=== PATIENT | male | born 1995 ===

== ENCOUNTER 2017-05-29 17:29 | Emergency (ER) | payer SELFPAY ==
[2017-05-29 17:29] VITALS: BMI 24.4
[2017-05-29 18:23] VITALS: BP 155/58; PULSE 75; RESP 16; TEMP 98.6; O2SAT 100
--- NOTE | 2017-05-29 19:12 | ED PDOC ---
HPI: General Adult Time Seen by Provider: 05/29/17 18:35 Chief Complaint (Nursing): Flu-like Symptoms Chief Complaint (Provider): Flu-like Symptoms History Per: Patient History/Exam Limitations: no limitations Onset/Duration Of Symptoms: Days (x2) Have you had recent travel within the past 21 days to any of the following countries: [place], [place], [place] or [place]?: No Current Symptoms Are (Timing): Still Present Additional Complaint(s): 22 year old male who presents to the emergency department with a complaint of flu-like symptoms including sore throat, weakness, bodyache, cough, headache and tactile fever ongoing since last night. Denied any shortness of breath, chest pain or recent travel. PMD: none provided Past Medical History Reviewed: Historical Data, Nursing Documentation, Vital Signs Vital Signs: Last Vital Signs Temp 98.6 F 05/29/17 18:21 Pulse 75 05/29/17 18:21 Resp 16 05/29/17 18:21 BP 155/58 H 05/29/17 18:21 Pulse Ox 100 05/29/17 19:18 - Medical History PMH: No Chronic Diseases Denies: Diabetes, Hepatitis, HIV, HTN, Seizures, Sexually Transmitted Disease - Surgical History Surgical History: No Surg Hx - Family History Family History: States: Unknown Family Hx - Social History Current smoker - smoking cessation education provided: No Alcohol: None Drugs: Denies - Home Medications Home Medications: Ambulatory Orders Medication Instructions Recorded Guaifenesin 400 mg PO QID #20 tablet 05/29/17 Ibuprofen [Motrin Tab] 600 mg PO QID PRN #20 tab 05/29/17 Oseltamivir Phosphate [Tamiflu] 75 mg PO BID #10 capsule 05/29/17 - Allergies Allergies/Adverse Reactions: Allergies Allergy/AdvReac Type Severity Reaction Status Date / Time No Known Allergies Allergy Verified 05/29/17 18:20 Review of Systems ROS Statement: Except As Marked, All Systems Reviewed And Found Negative Constitutional: Positive for: Fever (tactile), Weakness, Other (bodyache) ENT: Positive for: Nose Congestion, Throat Pain Cardiovascular: Negative for: Chest Pain Respiratory: Positive for: Cough. Negative for: Shortness of Breath Neurological: Positive for: Headache Physical Exam - Reviewed Nursing Documentation Reviewed: Yes Vital Signs Reviewed: Yes - Physical Exam Appears: Positive for: Well, Non-toxic, No Acute Distress Skin: Positive for: Normal Color, Warm, Dry. Negative for: Rash ENT: Positive for: Normal ENT Inspection, Pharynx Is (within normal limits), TM Is/Are (wnl, no erythema). Negative for: Pharyngeal Erythema, Tonsillar Exudate Neck: Positive for: Normal, Supple (no signs of meningismus) Cardiovascular/Chest: Positive for: Regular Rate, Rhythm, Chest Non Tender Respiratory: Positive for: Normal Breath Sounds. Negative for: Decreased Breath Sounds, Rales, Rhonchi, Wheezing, Respiratory Distress Gastrointestinal/Abdominal: Positive for: Normal Exam, Soft. Negative for: Tenderness Extremity: Positive for: Normal ROM (upper/lower). 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 Advised to take medication as prescribed. Return to the emergency room at any time for any new or worsening symptoms. Patient states he fully agrees with and understands discharge instructions. States that he agrees with the plan and disposition. Verbalized and repeated discharge instructions and plan. I have given the patient opportunity to ask any additional questions. Scribe Attestation: Documented by Ayanna Denise, acting as a scribe for Franny Mchugh PA-C. Provider Scribe Attestation: All medical record entries made by the Scribe were at my direction and personally dictated by me. I have reviewed the chart and agree that the record accurately reflects my personal performance of the history, physical exam, medical decision making, and the department course for this patient. I have also personally directed, reviewed, and agree with the discharge instructions and disposition. Disposition - Clinical Impression Clinical Impression: Influenza-like symptoms - Patient ED Disposition Is Patient to be Admitted: No Counseled Patient/Family Regarding: Diagnosis, Need For Followup, Rx Given - Disposition Referrals: Ray Monterroso MD [Staff Provider] - [facility] [Outside] Disposition: Routine/Home Disposition Time: 19:10 Condition: STABLE Additional Instructions: Thank you for letting us take care of you today. You were treated for viral illness, consider influenza. The emergency medical care you received today was directed at your acute symptoms. If you were prescribed any medication, please fill it and take as directed. It may take several days for your symptoms to resolve. Return to the Emergency Department if your symptoms worsen, do not improve, or if you have any other problems. Please call one of the physicians/clinics you have been referred to that are listed on the Patient Visit Information form that is included in your discharge packet. Bring any paperwork you were given at discharge with you along with any medications you are taking to your follow up visit. Our treatment cannot replace ongoing medical care by a primary care provider (PCP) outside of the emergency department. Thank you for allowing the [facility] team to be part of your care today. 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
== END 2017-05-29 19:35 | disposition home or self-care (01) ==
LOC: H.ER 17:29
DX: B34.9 Viral infection, unspecified (principal)

== ENCOUNTER 2017-07-01 16:15 | Emergency (ER) | payer OTHER ==
[2017-07-01 16:15] VITALS: BMI 24.4
[2017-07-01 16:22] VITALS: TEMP 98.1
[2017-07-01] MEDS ORDERED: Sodium Chloride 0.9% 1,000 ML IV STA (16:53)
--- NOTE | 2017-07-01 16:56 | ED PDOC ---
HPI: Abdomen Time Seen by Provider: 07/01/17 16:28 Chief Complaint (Nursing): Abdominal Pain Chief Complaint (Provider): Diarrhea History Per: Patient History/Exam Limitations: no limitations Onset/Duration Of Symptoms: Hrs Additional Complaint(s): Jose L Chen is a 22 year old male that presents to the ED with a chief complaint of nonbloody diarrhea that began earlier today s/p eating pasta. Patient denies any fever, nausea, vomiting, or genitourinary symptoms, but reports associated abdominal cramping. Past Medical History Reviewed: Historical Data, Nursing Documentation, Vital Signs Vital Signs: Last Vital Signs Temp 98.1 F 07/01/17 18:47 Pulse 86 07/01/17 18:47 Resp 18 07/01/17 18:47 BP 149/82 07/01/17 18:47 Pulse Ox 99 07/01/17 18:47 - Medical History PMH: No Chronic Diseases Denies: Diabetes, Hepatitis, HIV, HTN, Seizures, Sexually Transmitted Disease - Surgical History Other surgeries: non-contributory surgical history - Family History Family History: States: Unknown Family Hx - Home Medications Home Medications: Ambulatory Orders Medication Instructions Recorded Guaifenesin 400 mg PO QID #20 tablet 05/29/17 Ibuprofen [Motrin Tab] 600 mg PO QID PRN #20 tab 05/29/17 Oseltamivir Phosphate [Tamiflu] 75 mg PO BID #10 capsule 05/29/17 Loperamide [Loperamide HCl] 2 mg PO DAILY PRN #10 cap 07/01/17 - Allergies Allergies/Adverse Reactions: Allergies Allergy/AdvReac Type Severity Reaction Status Date / Time No Known Allergies Allergy Verified 05/29/17 18:20 Review of Systems ROS Statement: Except As Marked, All Systems Reviewed And Found Negative Constitutional: Negative for: Fever Gastrointestinal: Positive for: Abdominal Pain (mild abdominal cramping), Diarrhea (nonbloody diarrhea). Negative for: Nausea, Vomiting Genitourinary Male: Negative for: Dysuria, Frequency, Incontinence, Hematuria Physical Exam - Reviewed Nursing Documentation Reviewed: Yes Vital Signs Reviewed: Yes - Physical Exam Appears: Positive for: Non-toxic, No Acute Distress Head Exam: Positive for: ATRAUMATIC, NORMOCEPHALIC Skin: Positive for: Normal Color, Warm Eye Exam: Positive for: EOMI, Normal appearance, PERRL Cardiovascular/Chest: Positive for: Regular Rate, Rhythm. Negative for: Murmur Respiratory: Positive for: Normal Breath Sounds. Negative for: Wheezing Gastrointestinal/Abdominal: Positive for: Normal Exam, Soft. Negative for: Tenderness Back: Positive for: Normal Inspection. Negative for: L CVA Tenderness, R CVA Tenderness Extremity: Positive for: Normal ROM. Negative for: Deformity, Swelling Neurologic/Psych: Positive for: Alert, Oriented. Negative for: Motor/Sensory Deficits - Laboratory Results Result Diagrams: 07/01/17 17:00 07/01/17 17:00 - ECG O2 Sat by Pulse Oximetry: 98 (RA) Pulse Ox Interpretation: Normal Medical Decision Making Medical Decision Making: Impression: Gastroenteritis, Diarrhea Plan: * CMP * CBC * NaCl 1000 mLs at 1000 mLs/hr * Reevaluation Pt feels better, requesting food. Ate sandwich without difficulty. Scribe Attestation: Documented by Randee Veloz, acting as a scribe for Nieves Agarwal MD. Provider Scribe Attestation: All medical record entries made by the Scribe were at my direction and personally dictated by me. I have reviewed the chart and agree that the record accurately reflects my personal performance of the history, physical exam, medical decision making, and the department course for this patient. I have also personally directed, reviewed, and agree with the discharge instructions and disposition. Disposition - Clinical Impression Clinical Impression: Diarrhea - Disposition Referrals: [facility] [Outside] Disposition: Routine/Home Disposition Time: 18:32 Condition: IMPROVED Prescriptions: Loperamide [Loperamide HCl] 2 mg PO DAILY PRN #10 cap PRN Reason: Diarrhea Instructions: Diarrhea in Adolescents and Adults Forms: [employer] (Spanish), [facility] ED School/Work Excuse
[2017-07-01 17:20] LABS: BASO # 0.1 K/uL (0.0-0.2); EOS # 0.1 K/uL (0.0-0.7); EOS % 2.2 % (0.0-4.0); HEMOGLOBIN 14.5 g/dL (12.0-18.0); LYMPH # 1.7 K/uL (1.0-4.3); LYMPH % 26.7 % (20.0-40.0); MEAN CELL VOLUME 87.1 fl (80.0-94.0); MEAN CORPUSCULAR HEMOGLOBIN 28.9 pg (27.0-31.0); MEAN CORPUSCULAR HGB CONC 33.2 g/dL (33.0-37.0); MEAN PLATELET VOLUME 7.4 fl (7.2-11.7); MONO # 0.9 K/uL (0.0-0.8); MONO % 14.3 % (0.0-10.0); NEUT # 3.5 K/uL (1.8-7.0); NEUT % 55.8 % (50.0-75.0); NRBC % 0.1 % (0.0-0.0); RED CELL DISTRIBUTION WIDTH 13.2 % (11.5-14.5); WHITE BLOOD COUNT 6.3 K/uL (4.8-10.8)
[2017-07-01 17:44] LABS: ALB/GLOB RATIO 1.2 (1.0-2.1); ALBUMIN 4.5 g/dL (3.5-5.0); ALT/SGPT 45 U/L (21-72); AST/SGOT 33 U/L (17-59); BLOOD UREA NITROGEN 11 mg/dl (9-20); CALCIUM 9.8 mg/dL (8.4-10.2); GFR AFRICAN-AMERICAN > 60; GFR NON-AFRICAN AMERICAN > 60
[2017-07-01 18:47] VITALS: BP 149/82; PULSE 86; RESP 18
[2017-07-02 09:36] VITALS: O2SAT 98
== END 2017-07-01 18:51 | disposition home or self-care (01) ==
LOC: H.ER 16:15 → SUPCPDRO 16:15 → H.ER 18:51
DX: K52.9 Noninfective gastroenteritis and colitis, unspecified (principal)
CPT/HCPCS: 80053; 85025; 96360; 99283; J7040

== ENCOUNTER 2017-08-20 15:22 | Emergency (ER) | payer OTHER ==
[2017-08-20 15:22] VITALS: BMI 24.4
[2017-08-20 15:29] VITALS: PULSE 96; RESP 18; TEMP 97.3; O2SAT 98
--- NOTE | 2017-08-20 16:02 | ED PDOC ---
HPI: CCC, URI, Sore Throat Time Seen by Provider: 08/20/17 15:29 Chief Complaint (Nursing): ENT Problem Chief Complaint (Provider): ENT Problem History Per: Patient History/Exam Limitations: no limitations Onset/Duration Of Symptoms: Days (x2 days) Current Symptoms Are (Timing): Still Present Additional Complaint(s): Patient is complaining of sore throat, dry cough, tactile fever and headache x 2days. Otherwise:(-) URI symptoms, (-) SOB, (-) chest pain, (-) N/V/D, (-) abdominal pain, (-) flank pain, (-) urinary symptoms, (-) recent travel, (-) sick contacts. Past Medical History Reviewed: Historical Data, Nursing Documentation, Vital Signs Vital Signs: Last Vital Signs Temp 97.3 F L 08/20/17 15:27 Pulse 96 H 08/20/17 15:27 Resp 18 08/20/17 15:27 BP 152/95 H 08/20/17 17:31 Pulse Ox 98 08/20/17 17:15 - Medical History PMH: Denies: Diabetes, Hepatitis, HIV, HTN, Seizures, Sexually Transmitted Disease - Surgical History Surgical History: No Surg Hx - Family History Family History: States: Unknown Family Hx - Social History Current smoker - smoking cessation education provided: No Alcohol: None Drugs: Denies - Home Medications Home Medications: Ambulatory Orders Medication Instructions Recorded Guaifenesin 400 mg PO QID #20 tablet 05/29/17 Ibuprofen [Motrin Tab] 600 mg PO QID PRN #20 tab 05/29/17 Oseltamivir Phosphate [Tamiflu] 75 mg PO BID #10 capsule 05/29/17 Loperamide [Loperamide HCl] 2 mg PO DAILY PRN #10 cap 07/01/17 Ibuprofen [Motrin Tab] 600 mg PO QID PRN #20 tab 08/20/17 - Allergies Allergies/Adverse Reactions: Allergies Allergy/AdvReac Type Severity Reaction Status Date / Time No Known Allergies Allergy Verified 08/20/17 15:27 Review of Systems ROS Statement: Except As Marked, All Systems Reviewed And Found Negative (As per HPI, otherwise negative) Constitutional: Positive for: Fever ENT: Positive for: Throat Pain (Sore thraot) Respiratory: Positive for: Cough (dry) Neurological: Positive for: Headache Physical Exam - Reviewed Nursing Documentation Reviewed: Yes Vital Signs Reviewed: Yes - Physical Exam Comments: GENERAL APPEARANCE: Patient is awake, alert, oriented x 3, in no acute distress. SKIN: Warm, dry; (-) cyanosis, (-) rash. EYES: (-) conjunctival pallor, (-) scleral icterus, (-) conjunctival hemorrhage. ENMT: Mucous membranes moist. TMs: (-) erythema. Airway patent: (-) stridor. Pharynx: (-) erythema, (-) exudate. NECK: (-) tenderness, (-) stiffness, (-) meningismus, (-) lymphadenopathy. CHEST AND RESPIRATORY: (-) accessory muscle use. Lungs: (-) rales, (-) rhonchi , (-) wheezes, (-) rub; breath sounds equal bilaterally. HEART AND CARDIOVASCULAR: (-) irregularity; (-) murmur, (-) gallop, (-) rub. ABDOMEN AND GI: Soft; (-) tenderness, (-) guarding; (-) organomegaly; (-) mass; (-) CVA tenderness. EXTREMITIES: (-) deformity; (-) cellulitis, (-) lymphangitis; (-) edema. NEURO AND PSYCH: Mental status as above; (-) focal findings. - ECG O2 Sat by Pulse Oximetry: 98 (RA) Pulse Ox Interpretation: Normal Medical Decision Making Medical Decision Making: Time: 15:46 Initial Impression: viral illness Plan: Influenza A B Rapis Strep Group Time: 16:00 --Influenza A B - negative --Rapid strep group - negative - Advised to follow up with the clinic in 1-2 days without fail. Advised to take medication as prescribed. Return to the emergency room at any time for any new or worsening symptoms. Patient states he fully agrees with and understands discharge instructions. States that he agrees with the plan and disposition. Verbalized and repeated discharge instructions and plan. I have given the patient opportunity to ask any additional questions. Scribe Attestation: Documented by Mary Kay Frank acting as a scribe for REENA Viramontes PA-C. MD Tello Attestation: All medical record entries made by the Scribe were at my direction and personally dictated by me. I have reviewed the chart and agree that the record accurately reflects my personal performance of the history, physical exam, medical decision making, and the department course for this patient. I have also personally directed, reviewed, and agree with the discharge instructions and disposition. Disposition - Clinical Impression Clinical Impression: Viral illness - Patient ED Disposition Is Patient to be Admitted: No Counseled Patient/Family Regarding: Studies Performed, Diagnosis, Need For Followup, Rx Given - Disposition Referrals: [facility] [Outside] Disposition: Routine/Home Disposition Time: 17:00 Condition: FAIR Additional Instructions: Thank you for letting us take care of you today. You were treated for viral illness. The emergency medical care you received today was directed at your acute symptoms. If you were prescribed any medication, please fill it and take as directed. It may take several days for your symptoms to resolve. Return to the Emergency Department if your symptoms worsen, do not improve, or if you have any other problems. Please call one of the physicians/clinics you have been referred to that are listed on the Patient Visit Information form that is included in your discharge packet. Bring any paperwork you were given at discharge with you along with any medications you are taking to your follow up visit. Our treatment cannot replace ongoing medical care by a primary care provider (PCP) outside of the emergency department. Thank you for allowing the [facility] team to be part of your care today. 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
[2017-08-20 17:31] VITALS: BP 152/95
== END 2017-08-20 17:25 | disposition home or self-care (01) ==
LOC: H.ER 15:22
DX: R05 Cough (principal); B34.9 Viral infection, unspecified

== ENCOUNTER 2018-01-05 17:58 | Emergency (ER) | payer SELFPAY ==
[2018-01-05 17:58] VITALS: BMI 24.4
[2018-01-05 18:18] VITALS: BP 120/63; PULSE 84; RESP 18; TEMP 98; O2SAT 99
--- NOTE | 2018-01-05 19:01 | ED PDOC ---
Lower Extremity Pain/Injury Time Seen by Provider: 01/05/18 18:40 Chief Complaint (Nursing): Lower Extremity Problem/Injury Chief Complaint (Provider): Ankle pain History Per: Patient History/Exam Limitations: no limitations Onset/Duration Of Symptoms: Days (x2) Additional Complaint(s): Jose L Chen, a 22 year old male with no significant past medical history, presents to the emergency department with ankle pain onset yesterday. Patient states he slipped and fell going up the stairs and twisted his ankle and reports more pain today. No further medical complaints. Past Medical History Reviewed: Historical Data, Nursing Documentation, Vital Signs Vital Signs: Last Vital Signs Temp 98.0 F 01/05/18 18:16 Pulse 84 01/05/18 18:16 Resp 18 01/05/18 18:16 BP 120/63 01/05/18 18:16 Pulse Ox 99 01/05/18 18:16 - Medical History PMH: Denies: Diabetes, Hepatitis, HIV, HTN, Seizures, Sexually Transmitted Disease - Family History Family History: States: Unknown Family Hx - Home Medications Home Medications: Ambulatory Orders Medication Instructions Recorded Guaifenesin 400 mg PO QID #20 tablet 05/29/17 Ibuprofen [Motrin Tab] 600 mg PO QID PRN #20 tab 05/29/17 Oseltamivir Phosphate [Tamiflu] 75 mg PO BID #10 capsule 05/29/17 Loperamide [Loperamide HCl] 2 mg PO DAILY PRN #10 cap 07/01/17 Ibuprofen [Motrin Tab] 600 mg PO QID PRN #20 tab 08/20/17 Ibuprofen [Motrin] 400 mg PO Q8 PRN #21 tab 01/05/18 - Allergies Allergies/Adverse Reactions: Allergies Allergy/AdvReac Type Severity Reaction Status Date / Time No Known Allergies Allergy Verified 01/05/18 18:16 Review of Systems ROS Statement: Except As Marked, All Systems Reviewed And Found Negative Musculoskeletal: Positive for: Other (ankle pain) Physical Exam - Reviewed Nursing Documentation Reviewed: Yes Vital Signs Reviewed: Yes - Physical Exam Appears: Positive for: Well, Non-toxic, No Acute Distress Head Exam: Positive for: ATRAUMATIC, NORMAL INSPECTION, NORMOCEPHALIC Cardiovascular/Chest: Positive for: Regular Rate, Rhythm Respiratory: Positive for: Normal Breath Sounds. Negative for: Respiratory Distress Extremity: Positive for: Tenderness (distal right lateral malleolus, right lateral foot (mild)), Swelling. Negative for: Other (ecchymosis) Neurologic/Psych: Positive for: Alert, Oriented - ECG O2 Sat by Pulse Oximetry: 99 (RA) Pulse Ox Interpretation: Normal - Progress ED Course And Treament: xry of ankle: neg for fx xry of foot: neg for fx motrin 400mg x 1 dose Placed in air cast Medical Decision Making Medical Decision Making: Time: 18:40 Initial Impression: ankle pain following a fall Initial Plan: --Motrin 400 mg PO --Xray right ankle 3 views --Xray right foot 3 views Scribe Attestation: Documented by Valentina Weiss, acting as a scribe for Cherelle Frank PA-C. Provider Scribe Attestation: All medical record entries made by the Scribe were at my direction and personally dictated by me. I have reviewed the chart and agree that the record accurately reflects my personal performance of the history, physical exam, medical decision making, and the department course for this patient. I have also personally directed, reviewed, and agree with the discharge instructions and disposition. Disposition - Clinical Impression Clinical Impression: Ankle sprain and strain - Patient ED Disposition Is Patient to be Admitted: No - Disposition Referrals: [facility] [Outside] Disposition: Routine/Home Disposition Time: 19:30 Condition: FAIR Prescriptions: Ibuprofen [Motrin] 400 mg PO Q8 PRN #21 tab PRN Reason: Pain, Moderate (4-7) Instructions: Ankle Sprain (DC) Forms: [facility] ED School/Work Excuse
--- NOTE | 2018-01-06 09:03 | RAD ---
Date of service: 01/05/2018 PROCEDURE: Right Wrist Radiographs. HISTORY: ankle injury COMPARISON: None. FINDINGS: BONES: Old distal fibular fracture. JOINTS: Normal. No dislocation. SOFT TISSUES: Normal. OTHER FINDINGS: None. IMPRESSION: Old distal fibular fracture.
--- NOTE | 2018-01-06 09:10 | RAD ---
Date of service: 01/05/2018 PROCEDURE: Right Foot Radiographs. HISTORY: foot injury COMPARISON: None. FINDINGS: BONES: Normal. No fracture. JOINTS: Normal. SOFT TISSUES: Normal. OTHER FINDINGS: None. IMPRESSION: Normal right foot radiographs.
== END 2018-01-05 20:10 | disposition home or self-care (01) ==
LOC: H.ER 17:58
DX: S93.401A Sprain of unspecified ligament of right ankle, initial encounter (principal); X50.9XXA Other and unspecified overexertion or strenuous movements or postures, initial encounter; Y92.89 Other specified places as the place of occurrence of the external cause

== ENCOUNTER 2018-01-19 03:18 | Emergency (ER) | payer SELFPAY ==
[2018-01-19 03:18] VITALS: BMI 24.4
[2018-01-19 03:45] VITALS: PULSE 73; RESP 18; TEMP 99.4
--- NOTE | 2018-01-19 04:13 | ED PDOC ---
HPI: Psych/Substance Abuse Time Seen by Provider: 01/19/18 03:53 Chief Complaint (Nursing): Trauma ED Caveat: Intoxicated History Per: Patient, Other History/Exam Limitations: intoxication Onset/Duration Of Symptoms: Mins Modifying Factor(s): Alcohol Additional Complaint(s): No PMHx presenting with fall from 5 feet, admits to drinking alcohol, patietn states he didn't lose consciousness but friend states he might have. Also states that he hurt his R wrist bracing himself. Past Medical History Reviewed: Historical Data, Nursing Documentation, Vital Signs Vital Signs: Last Vital Signs Temp 99.4 F 01/19/18 03:42 Pulse 73 01/19/18 03:42 Resp 18 01/19/18 03:42 BP 133/44 L 01/19/18 03:42 Pulse Ox 97 01/19/18 03:42 - Medical History PMH: Denies: Diabetes, Hepatitis, HIV, HTN, Seizures, Sexually Transmitted Disease - Family History Family History: States: Unknown Family Hx - Home Medications Home Medications: Ambulatory Orders Medication Instructions Recorded Guaifenesin 400 mg PO QID #20 tablet 05/29/17 Ibuprofen [Motrin Tab] 600 mg PO QID PRN #20 tab 05/29/17 Oseltamivir Phosphate [Tamiflu] 75 mg PO BID #10 capsule 05/29/17 Loperamide [Loperamide HCl] 2 mg PO DAILY PRN #10 cap 07/01/17 Ibuprofen [Motrin Tab] 600 mg PO QID PRN #20 tab 08/20/17 Ibuprofen [Motrin] 400 mg PO Q8 PRN #21 tab 01/05/18 Ibuprofen [Motrin Tab] 600 mg PO Q6 #30 tab 01/19/18 - Allergies Allergies/Adverse Reactions: Allergies Allergy/AdvReac Type Severity Reaction Status Date / Time No Known Allergies Allergy Verified 01/05/18 18:16 Review of Systems Review Of Systems: ROS cannot be obtained secondary to pt's inabilty to answer questions. Physical Exam - Reviewed Nursing Documentation Reviewed: Yes Vital Signs Reviewed: Yes - Physical Exam Appears: Positive for: Well (Intoxicated appearing), Non-toxic, No Acute Distress Head Exam: Positive for: ATRAUMATIC, NORMAL INSPECTION, NORMOCEPHALIC Skin: Positive for: Normal Color, Warm, DRY Eye Exam: Positive for: EOMI, Normal appearance, PERRL ENT: Positive for: Normal ENT Inspection Neck: Positive for: Normal, Painless ROM Cardiovascular/Chest: Positive for: Regular Rate, Rhythm Respiratory: Positive for: CNT, Normal Breath Sounds Gastrointestinal/Abdominal: Positive for: Normal Exam, Soft Back: Positive for: Normal Inspection Extremity: Positive for: Tenderness (R wrist with swelling, nontender snuffbox, swelling to distal radius, no stepoff, neurovascularly intact), Capillary Refill (2+) Neurologic/Psych: Positive for: Alert, sign builder II-XII, Oriented, Gait (normal). Negative for: Motor/Sensory Deficits - ECG O2 Sat by Pulse Oximetry: 97 Pulse Ox Interpretation: Normal Medical Decision Making Medical Decision MakinAM Intox with head trauma and wrist trauma --Stable appearing --Will get CT, xrays, re-eval Time: 0658 CT HEAD RESULTS FINDINGS: Brain: Normal. No hemorrhage. No significant white matter disease. No edema. Ventricles: Normal. No ventriculomegaly. Bones/joints: Normal. No acute fracture. Sinuses: Mild patchy sinus disease. There is opacification of left sphenoid sinus. Mastoid air cells: Normal as visualized. No mastoid effusion. Orbits: The visualized portions of globe and lens are intact. Soft tissues: Right frontal scalp hematoma. 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 IMPRESSION: 1. Right frontal scalp hematoma. 2. No evidence of an acute intracranial hemorrhage, midline shift or mass effect is identified. Thank you for allowing us to participate in the care of your patient. Dictated and Authenticated by: Taylor Wolf MD 01/19/2018 6:58 AM Eastern Time ([place] & [place]) Time: 0703 CT CERVICAL SPINE RESULTS FINDINGS: Vertebrae: Reversal of the normal cervical lordosis may be positional versus muscular spasm. 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 Discs/Spinal canal/Neural foramina: No spinal stenosis. No neural foraminal narrowing. Soft tissues: Posterior neck subcutaneous soft tissue nodules likely representing benign etiology. Lung apices: Normal. There is opacification of the left sphenoid sinus. Patchy sinus disease. Right tonsilloliths. IMPRESSION: There is no acute fracture of cervical spine. Thank you for allowing us to participate in the care of your patient. Dictated and Authenticated by: Taylor Wolf MD 01/19/2018 7:03 AM Eastern Time ([place] & [place]) 0705 Patient placed in wrist splint for protection of wrist. PAtient feeling well, sober, alert, A&O x 3. Patient will followup in clinic. Disposition - Clinical Impression Clinical Impression: Wrist sprain, Head injury - Patient ED Disposition Is Patient to be Admitted: No - Disposition Referrals: [facility] [Outside] Disposition: Routine/Home Disposition Time: 07:09 Condition: IMPROVED Prescriptions: Ibuprofen [Motrin Tab] 600 mg PO Q6 #30 tab Instructions: Closed Head Injury, Common Wrist Injuries Forms: [facility] (Macedonian), [facility] ED School/Work Excuse
[2018-01-19 07:29] VITALS: BP 128/80; O2SAT 99
--- NOTE | 2018-01-19 08:38 | CT ---
Date of service: 01/19/2018 PROCEDURE: CT HEAD WITHOUT CONTRAST. HISTORY: intox, head injury COMPARISON: 2010 TECHNIQUE: Axial computed tomography images were obtained through the head/brain without intravenous contrast. Radiation dose: Total exam DLP = 918 mGy-cm. This CT exam was performed using one or more of the following dose reduction techniques: Automated exposure control, adjustment of the mA and/or kV according to patient size, and/or use of iterative reconstruction technique. FINDINGS: HEMORRHAGE: No intracranial hemorrhage. BRAIN: No mass effect or edema. No atrophy or chronic microvascular ischemic changes. VENTRICLES: Unremarkable. No hydrocephalus. CALVARIUM: Unremarkable. PARANASAL SINUSES: Moderate sphenoid sinusitis, greater on the left. Also mild mucosal thickening in the ethmoid air cells posteriorly. MASTOID AIR CELLS: Unremarkable as visualized. No inflammatory changes. OTHER FINDINGS: There is a right frontal scalp hematoma noted. 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 IMPRESSION: No evidence of intracranial hemorrhage. Right frontal scalp hematoma. Moderate sphenoid sinusitis. This agrees with preliminary report.
--- NOTE | 2018-01-19 08:42 | CT ---
Date of service: 01/19/2018 PROCEDURE: CT Cervical Spine without contrast HISTORY: intox, head injury COMPARISON: None available. TECHNIQUE: Axial computed tomography images were obtained of the cervical spine without the use of intravenous contrast. Coronal and sagittal reformatted images were created and reviewed. Radiation dose: Total exam DLP = 404 mGy-cm. This CT exam was performed using one or more of the following dose reduction techniques: Automated exposure control, adjustment of the mA and/or kV according to patient size, and/or use of iterative reconstruction technique. FINDINGS: VERTEBRAE: No fracture. Normal alignment. No destructive bony lesion. 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 There is mild reversal of the normal lordotic curvature. DISCS/SPINAL CANAL/NEURAL FORAMINA: No significant central canal or neural foraminal stenosis. Discs heights are grossly preserved. PARASPINAL SOFT TISSUES: Unremarkable. OTHER FINDINGS: A few small posterior subcutaneous soft tissue nodules more than likely represent benign etiology. Moderate left sphenoid sinusitis is noted. IMPRESSION: No evidence of fracture or malalignment. This agrees with preliminary report.
--- NOTE | 2018-01-19 10:29 | RAD ---
Date of service: 01/19/2018 PROCEDURE: Right Wrist Radiographs. HISTORY: intox, s/p fall COMPARISON: None. FINDINGS: BONES: 4 of the right wrist were performed for right wrist pain and trauma. No fracture is seen. Carpal bones and metacarpals appear intact including the navicular bone. No abnormal carpal bone widening is seen. Mild overlying soft tissue swelling is seen. JOINTS: Normal. No dislocation. SOFT TISSUES: Normal. OTHER FINDINGS: None. IMPRESSION: No appreciable right wrist fracture. Mild soft tissue swelling.
== END 2018-01-19 07:29 | disposition home or self-care (01) ==
LOC: H.ER 03:18
DX: S00.03XA Contusion of scalp, initial encounter (principal); S63.501A Unspecified sprain of right wrist, initial encounter; W18.30XA Fall on same level, unspecified, initial encounter

== ENCOUNTER 2018-01-21 16:02 | Emergency (ER) | payer OTHER ==
[2018-01-21 16:03] VITALS: BMI 24.4
[2018-01-21 16:14] VITALS: BP 146/79; PULSE 97; RESP 16; TEMP 98.4; O2SAT 97
--- NOTE | 2018-01-21 16:51 | ED PDOC ---
HPI: General Adult Time Seen by Provider: 01/21/18 16:17 Chief Complaint (Nursing): Wound Check Chief Complaint (Provider): Wrist pain History Per: Patient History/Exam Limitations: no limitations Additional History Per: Patient Additional Complaint(s): 22yo male, comes to ER for a reevaluation of right wrist injury. Patient injured his wrist 4 days ago and today still complains of wrist pain. He denies any new injuries, trauma, weakness or numbness. No other medical complaints. Past Medical History Reviewed: Historical Data, Nursing Documentation, Vital Signs Vital Signs: Last Vital Signs Temp 98.4 F 01/21/18 16:14 Pulse 97 H 01/21/18 16:14 Resp 16 01/21/18 16:14 BP 146/79 01/21/18 16:14 Pulse Ox 97 01/21/18 17:19 - Medical History PMH: No Chronic Diseases Denies: Diabetes, Hepatitis, HIV, HTN, Seizures, Sexually Transmitted Disease - Surgical History Surgical History: No Surg Hx - Family History Family History: States: No Known Family Hx, Unknown Family Hx - Home Medications Home Medications: Ambulatory Orders Medication Instructions Recorded Guaifenesin 400 mg PO QID #20 tablet 05/29/17 Ibuprofen [Motrin Tab] 600 mg PO QID PRN #20 tab 05/29/17 Oseltamivir Phosphate [Tamiflu] 75 mg PO BID #10 capsule 05/29/17 Loperamide [Loperamide HCl] 2 mg PO DAILY PRN #10 cap 07/01/17 Ibuprofen [Motrin Tab] 600 mg PO QID PRN #20 tab 08/20/17 Ibuprofen [Motrin] 400 mg PO Q8 PRN #21 tab 01/05/18 Ibuprofen [Motrin Tab] 600 mg PO Q6 #30 tab 01/19/18 - Allergies Allergies/Adverse Reactions: Allergies Allergy/AdvReac Type Severity Reaction Status Date / Time No Known Allergies Allergy Verified 01/05/18 18:16 Review of Systems ROS Statement: Except As Marked, All Systems Reviewed And Found Negative Musculoskeletal: Positive for: Hand Pain (right wrist pain) Neurological: Negative for: Weakness, Numbness Physical Exam - Reviewed Nursing Documentation Reviewed: Yes Vital Signs Reviewed: Yes - Physical Exam Appears: Positive for: Non-toxic, No Acute Distress Head Exam: Positive for: ATRAUMATIC, NORMAL INSPECTION, NORMOCEPHALIC Skin: Positive for: Normal Color, Warm Pulses-Radial (R): 2+ Extremity: Positive for: Normal ROM (FROM of all digits on right hand and right wrist.), Tenderness (snuffbox tenderness). Negative for: Deformity, Swelling Neurologic/Psych: Positive for: Alert, Oriented. Negative for: Motor/Sensory Deficits - ECG O2 Sat by Pulse Oximetry: 97 (RA) Pulse Ox Interpretation: Normal Medical Decision Making Medical Decision Making: Impression: Wrist injury Plan: * Patient placed in a thumb-spica splint. Instructed to follow up in a week for a repeat XR to rule out scaphoid fracture. Stable for discharge home. Scribe Attestation: Documented by Lisa Jessica acting as a scribe for REENA Barahona. Provider Attestation: All medical record entries made by the Scribe were at my direction and personally dictated by me. I have reviewed the chart and agree that the record accurately reflects my personal performance of the history, physical exam, medical decision making, and the department course for this patient. I have also personally directed, reviewed, and agree with the discharge instructions and disposition. Disposition - Clinical Impression Clinical Impression: Hand injury - Patient ED Disposition Is Patient to be Admitted: No Counseled Patient/Family Regarding: Diagnosis, Need For Followup - Disposition Referrals: [facility] [Outside] Disposition: Routine/Home Disposition Time: 16:48 Condition: STABLE Additional Instructions: Please have repeat XR on thursday 01/25 for evaluation of scaphoid. Instructions: Wrist Fracture (DC) Forms: [employer] (Chinese), [facility] ED School/Work Excuse
== END 2018-01-21 17:20 | disposition home or self-care (01) ==
LOC: H.ER 16:02
DX: S69.91XA Unspecified injury of right wrist, hand and finger(s), initial encounter (principal); X58.XXXA Exposure to other specified factors, initial encounter

== ENCOUNTER 2018-03-23 19:55 | Emergency (ER) | payer OTHER, SELFPAY ==
[2018-03-23 19:55] VITALS: BMI 24.4
[2018-03-23 20:01] VITALS: BP 145/75; PULSE 87; RESP 18; TEMP 98.4; O2SAT 100
--- NOTE | 2018-03-23 20:14 | ED PDOC ---
HPI: Nose Bleed Time Seen by Provider: 03/23/18 20:05 Chief Complaint (Nursing): ENT Problem Chief Complaint (Provider): nose bleed History Per: Patient History/Exam Limitations: no limitations Onset/Duration Of Symptoms: Days (x1) Current Symptoms Are (Timing): Still Present Location Of Bleeding: Right Nare Symptoms Have Been: Episodic Additional Complaint(s): Jose L Chen is a 23 year old male, with no significant past medical history, who presents to the emergency department for evaluation of x2 episodes of nose bleed onset since yesterday. Patient states episodes lasted about x15min, he had an episode yesterday and one today on the right nare. He denies any history of bruising easily. No further medical complaints. PMD: None provided. Past Medical History Reviewed: Historical Data, Nursing Documentation, Vital Signs Vital Signs: Last Vital Signs Temp 98.4 F 03/23/18 19:59 Pulse 87 03/23/18 19:59 Resp 18 03/23/18 19:59 BP 145/75 03/23/18 19:59 Pulse Ox 100 03/23/18 19:59 - Medical History PMH: No Chronic Diseases Denies: Diabetes, Hepatitis, HIV, HTN, Seizures, Sexually Transmitted Disease - Surgical History Surgical History: No Surg Hx - Family History Family History: States: Unknown Family Hx - Social History Current smoker - smoking cessation education provided: No Alcohol: None Drugs: Denies - Home Medications Home Medications: Ambulatory Orders Medication Instructions Recorded Guaifenesin 400 mg PO QID #20 tablet 05/29/17 Ibuprofen [Motrin Tab] 600 mg PO QID PRN #20 tab 05/29/17 Oseltamivir Phosphate [Tamiflu] 75 mg PO BID #10 capsule 05/29/17 Loperamide [Loperamide HCl] 2 mg PO DAILY PRN #10 cap 07/01/17 Ibuprofen [Motrin Tab] 600 mg PO QID PRN #20 tab 08/20/17 Ibuprofen [Motrin] 400 mg PO Q8 PRN #21 tab 01/05/18 Ibuprofen [Motrin Tab] 600 mg PO Q6 #30 tab 01/19/18 - Allergies Allergies/Adverse Reactions: Allergies Allergy/AdvReac Type Severity Reaction Status Date / Time No Known Allergies Allergy Verified 03/23/18 19:59 Review of Systems ROS Statement: Except As Marked, All Systems Reviewed And Found Negative ENT: Positive for: Nose Discharge (nose bleed) Physical Exam - Reviewed Nursing Documentation Reviewed: Yes Vital Signs Reviewed: Yes - Physical Exam Appears: Positive for: No Acute Distress Head Exam: Positive for: ATRAUMATIC, NORMAL INSPECTION, NORMOCEPHALIC Skin: Positive for: Normal Color, Warm, Dry Eye Exam: Positive for: Normal appearance, EOMI, PERRL ENT: Positive for: Other (Right nare: dry blood noted to anterior medial septum with no active bleeding) Neck: Positive for: Normal, Painless ROM Cardiovascular/Chest: Positive for: Regular Rate, Rhythm. Negative for: Murmur Respiratory: Positive for: Normal Breath Sounds. Negative for: Respiratory Distress Extremity: Positive for: Normal ROM (upper and lower extremities). Negative for: Deformity, Swelling Neurologic/Psych: Positive for: Alert, Oriented - ECG O2 Sat by Pulse Oximetry: 100 (RA) Pulse Ox Interpretation: Normal Medical Decision Making Medical Decision Making: Time: 20:05 Initial Impression: Epistaxis Initial Plan: --Discussed with patient options on how to control bleeding. To return for uncontrolled bleeding and encouraged use of humidifier and vaseline application to nare. Scribe Attestation: Documented by Chino Freeman, acting as a scribe for Cherelle Frank PA-C Provider Scribe Attestation: All medical record entries made by the Scribe were at my direction and personally dictated by me. I have reviewed the chart and agree that the record accurately reflects my personal performance of the history, physical exam, medical decision making, and the department course for this patient. I have also personally directed, reviewed, and agree with the discharge instructions and disposition. Disposition - Clinical Impression Clinical Impression: Epistaxis - Disposition Referrals: Bruce Nuñez MD [Staff Provider] - Disposition: Routine/Home Disposition Time: 20:12 Condition: STABLE Instructions: Nosebleeds (DC) Forms: [employer] (Portuguese)
== END 2018-03-23 20:26 | disposition home or self-care (01) ==
LOC: H.ER 19:55
DX: R04.0 Epistaxis (principal)